=== PATIENT | female | born 1985 | race Caucasian/White ===

== ENCOUNTER 2022-06-04 07:54 | Emergency (ER) | payer BC, OTHER, SELFPAY | END 2022-06-04 08:54 | disposition home or self-care (01) | LOC: ERS 07:54 | DX: J45.901 Unspecified asthma with (acute) exacerbation (principal); J02.9 Acute pharyngitis, unspecified | CPT/HCPCS: 87081; 87430; 87804; 99284 ==

== ENCOUNTER 2023-07-14 11:12 | Emergency (ER) | payer BC ==
[2023-07-14 12:54] LABS: SARS-CoV-2 NAA Rapid Test Not Detected (NotDetected)
== END 2023-07-14 15:20 | disposition home or self-care (01) ==
LOC: ERS 11:12
DX: J06.9 Acute upper respiratory infection, unspecified (principal)
CPT/HCPCS: 99283